=== PATIENT | female | born 1965 | race Asian ===

== ENCOUNTER → 2021-09-18 | Outpatient (CLI) | payer BC | LOC: LAB 16:16 | PROVIDERS: ATTEND Internal Medicine Cardiovascular Disease | DX: Z79.01 Long term (current) use of anticoagulants (principal) | CPT/HCPCS: 36415; 85610 ==

== ENCOUNTER → 2021-09-28 | Outpatient (CLI) | payer BC ==
--- NOTE | 2021-09-28 08:45 | RAD ---
EXAM: Left ankle, 3 views. HISTORY: Chronic pain. COMPARISON: None. FINDINGS: 3 views of the left ankle with weightbearing are obtained. There is no fracture, dislocatio n or subluxation. The ankle mortise is intact. There is no osteochondral lesion. There is a component of suspected pes planus. IMPRESSION: Suspected component of pes planus. No acute osseous finding. Electronically signed by: Geneva Carnes MD (09/28/2021 8:43 AM) [id number]
== END ==
LOC: RAD 08:18
PROVIDERS: ATTEND Podiatrist
DX: M25.572 Pain in left ankle and joints of left foot (principal)
CPT/HCPCS: 73610